=== PATIENT | male | born 1980 | race Two or more races ===

== ENCOUNTER 2022-05-19 12:57 | Emergency (ER) | payer BC ==
[~2022-05-19] VITALS: Ht 175.3 cm; Wt 83.9 kg
[2022-05-19 13:03] VITALS: BP 141/113
[2022-05-19] MEDS ORDERED: TDAP [DIPH/PERTUSSIS/TET] 0.5 ML VIAL IM ONE ×2 (14:00→14:01)
--- NOTE | 2022-05-19 14:39 | NUR ---
Patient discharged to home in stable condition. Written and verbal after care instructions given. Patient verbalizes understanding of instruction.
== END 2022-05-19 14:39 | disposition home or self-care (01) ==
LOC: ER 13:00
DX: S09.90XA Unspecified injury of head, initial encounter (principal); W01.0XXA Fall on same level from slipping, tripping and stumbling without subsequent striking against object, initial encounter; Y93.01 Activity, walking, marching and hiking; Y92.89 Other specified places as the place of occurrence of the external cause; Y99.8 Other external cause status
CPT/HCPCS: 70450-TC; 90715